=== PATIENT | female | born 1985 | race Two or more races ===

== ENCOUNTER → 2019-09-20 | Outpatient (CLI) | payer OTHER | END | disposition home or self-care (01) | LOC: LABMN 15:17 | PROVIDERS: ATTEND Internal Medicine | DX: Z02.1 Encounter for pre-employment examination (principal) | CPT/HCPCS: 86706; 86735; 86762; 86765; 86787 ==

== ENCOUNTER 2020-05-21 10:49 | Emergency (ER) | payer SELFPAY ==
[~2020-05-21] VITALS: Ht 154.9 cm; Wt 50.0 kg
[2020-05-21 10:51] VITALS: BP 113/70
== END 2020-05-21 11:57 | disposition home or self-care (01) ==
LOC: EMS 10:50
DX: B34.9 Viral infection, unspecified (principal); Z20.828 Contact with and (suspected) exposure to other viral communicable diseases
CPT/HCPCS: 99283; U0003

== ENCOUNTER → 2020-10-30 | Outpatient (CLI) | payer OTHER | END | disposition home or self-care (01) | LOC: LABMN 07:49 | PROVIDERS: ATTEND Internal Medicine | DX: Z01.84 Encounter for antibody response examination (principal) | CPT/HCPCS: 86787 ==